=== PATIENT | female | born 1935 | race Hispanic/Latino ===

== ENCOUNTER 2017-08-21 14:16 | Emergency (ER) | payer MEDICARE, OTHER ==
[~2017-08-21] VITALS: Ht 154.9 cm; Wt 63.5 kg
[2017-08-21] MEDS ORDERED: LOVASTATIN10 MG PO (14:28)
[2017-08-21] MEDS ORDERED: GLIPIZIDE ER2.5 MG PO (14:29)
[2017-08-21] MEDS ORDERED: LOSARTAN-HCTZ1 EAC1 PO (14:29)
[2017-08-21] MEDS ORDERED: POTASSIUM CHLO10 ME2 PO (14:29)
[2017-08-21] MEDS ORDERED: ADULT LOW DOSE81 MG PO (14:33)
[2017-08-21] MEDS ORDERED: NORCO 5-325 TA1 EACH PO (17:18)
== END 2017-08-21 17:28 | disposition home or self-care (01) ==
LOC: ED 14:16
DX: S05.12XA Contusion of eyeball and orbital tissues, left eye, initial encounter (principal); S09.90XA Unspecified injury of head, initial encounter; I10 Essential (primary) hypertension; Z79.899 Other long term (current) drug therapy; Z79.82 Long term (current) use of aspirin; W18.30XA Fall on same level, unspecified, initial encounter
CPT/HCPCS: 70450; 70486; 99284